=== PATIENT | female | born 1990 | race African-American/Black ===

== ENCOUNTER 2016-06-17 06:32 | Emergency (ER) | payer MEDICAID ==
[2015-10-17 11:01] VITALS: BMI 32.0
[~2016-06-17 06:32] MED LIST: BUTALB-APAP-CA1 EACH PO; HYDROCODONE-APA1 TAB PO; LEXAPRO10 MG PO
[2016-06-17 07:32] LABS: BASOPHILS 0.1 % (0.0-2.0); EOSINOPHILS 0 % (0-7); HEMATOCRIT 41.2 % (36.0-48.0); HEMOGLOBIN 13.8 g/dL (12-16); IMMATURE GRANULOCYTES 0.1 % (0-5); LYMPHOCYTES 9.4 % (15-50); MCH 30.4 pg (26.0-34.0); MCHC 33.5 g/dL (31.0-37.0); MCV 90.7 fL (80.0-100.0); MONOCYTES 1.4 % (2-11); PLATELET COUNT 230 10x3/uL (130-400); RBC 4.54 10x6/uL (4.00-5.40); RDW 12.6 % (11.5-14.5); WBC 7.7 10x3/uL (4.8-10.8)
[2016-06-17 07:50] LABS: ALBUMIN 4.4 g/dL (3.4-5.0); ALKALINE PHOSPHATASE 53 U/L (46-116); ALT (SGPT) 18 U/L (10-68); AMYLASE - SERUM 46 U/L (25-115); BILIRUBIN - TOTAL 0.51 mg/dL (0.2-1.3); CALC OSMOLALITY 275 mosm/kg (275-300); CALCIUM 9.8 mg/dL (8.5-10.1); CARBON DIOXIDE 22.5 mmol/L (21.0-32.0); CHLORIDE - SERUM 103 mmol/L (98-107); CREATININE - SERUM 0.8 mg/dL (0.6-1.3); GLUCOSE 121 mg/dL (74-106); LIPASE 106 U/L (73-393); POTASSIUM - SERUM 4.4 mmol/L (3.5-5.1); PROTEIN - SERUM 8.1 g/dL (6.4-8.2); SODIUM 138 mmol/L (136-145); UREA NITROGEN 11 mg/dL (7-18); eGFR NON AFRICAN AMERICAN 90 mL/min (90-120)
== END 2016-06-17 08:18 | disposition home or self-care (01) ==
LOC: D.ER 06:32
PROVIDERS: Emergency Medicine
DX: K29.00 Acute gastritis without bleeding (principal); F41.9 Anxiety disorder, unspecified

== ENCOUNTER 2019-08-22 09:06 | Emergency (ER) | payer SELFPAY ==
[~2019-08-22] VITALS: Ht 172.7 cm; Wt 104.5 kg
[2019-08-22 09:12] VITALS: Ht 172.7 cm; Wt 104.5 kg
[2019-08-22] MEDS ORDERED: IBUPROFEN800 MG PO (10:17)
[2019-08-22] MEDS ORDERED: CYCLOBENZAPRINE10 MG PO (10:17)
[2019-08-22] MEDS ORDERED: HYDROCODON-ACE1 EAC2 PO (10:17)
[2019-08-22 10:20] VITALS: BP 109/72
== END 2019-08-22 10:46 | disposition home or self-care (01) ==
LOC: D.ER 09:06
DX: S16.1XXA Strain of muscle, fascia and tendon at neck level, initial encounter (principal); S23.3XXA Sprain of ligaments of thoracic spine, initial encounter; W11.XXXA Fall on and from ladder, initial encounter; Y93.9 Activity, unspecified; Y92.9 Unspecified place or not applicable